=== PATIENT | female | born 1980 | race Caucasian/White ===

== ENCOUNTER 2017-10-05 11:50 | Emergency (ER) | payer OTHER, MEDICAID ==
[~2017-10-05] VITALS: Ht 165.1 cm; Wt 68.0 kg
[~2017-10-05 11:50] MED LIST: ACETAMINOPHEN-120 ML PO; ACYCLOVIR 800800 M1; ADDERALL 20 MG20 MG PO; AMBIEN 5 MG TABL5 M1 PO; AMOXICILLIN 50500 MG PO; ANACIN 400-321 EACH PO; AUGMENTIN 875875 MG PO; BUSPAR; BUSPIRONE HCL10 MG PO; CELEXA 10 MG TA10 M1; CHLOR-TABLET4 MG PO; CIPROFLOXACIN500 M1 PO; CLARITIN10 MG PO; CLEOCIN HCL150 MG PO; CYMBALTA60 MG PO; DOXYCYCLINE 10100 M1 PO; FIORINAL 50-321 EACH; FLEXERIL PO; HYDROCODONE-AP1 EAC6 PO; IBUPROFEN 800800 M1; IBUPROFEN 800800 M1 PO; LAMICTAL; LIDOCAINE VISC100 M1 SWISH&SPIT; LIPITOR10 MG PO; LUNESTA2 MG PO; NORCO 5-325 TA1 EAC1 PO; NORCO 5-325 TA1 EACH PO; OMEPRAZOLE40 MG; PAXIL10 MG PO; PEPCID20 MG PO; PERCOCET 5-3251 EACH PO; PHENERGAN 25 MG25 M1 PO; PREDNISONE 10 M10 MG PO; PROBIOTIC1 EAC1 PO; REQUIP0.5 MG; RITALIN; TESSALON PERLE100 MG PO; TRINATE TABLET1 TAB PO; ULTRAM 50MG TAB50 MG PO; VALTREX1000 MG PO; VENTOLIN17 GM INH; XANAX 0.5 MG0.5 MG PO; XANAX1 MG PO; ZOFRAN ODT4 MG PO; ZOFRAN4 MG PO; ZOLOFT20 MG/1 ML; ZPAK PO; ZYRTEC10 M5 PO
[2017-10-05 12:10] VITALS: BP 143/82
[2017-10-05] MEDS ORDERED: AMBIEN 5 MG TABL5 M1 PO (12:12)
[2017-10-05 12:35] LABS: URINE BILIRUBIN NEGATIVE (Negative); URINE BLOOD NEGATIVE (Negative); URINE CLARITY CLEAR; URINE COLOR YELLOW; URINE GLUCOSE-RANDOM NEGATIVE (Negative); URINE KETONES TRACE (Negative); URINE LEUKOCYTES-REFLEX TRACE (Negative); URINE NITRITE-REFLEX NEGATIVE (Negative); URINE PROTEIN NEGATIVE (Negative); URINE SPECIFIC GRAVITY 1.025 (1.005-1.030); URINE UROBILINOGEN 0.2 E.U./dl (0.2-1.0)
[2017-10-05 12:52] LABS: SQUAMOUS >10 Many /LPF (0-3); URINE RBC None Seen /HPF (0-2); URINE WBC-REFLEX 0-5 Rare /HPF (0-5)
[2017-10-05 12:53] LABS: BACTERIA-REFLEX 1-9 Few /HPF (None Seen); CASTS None Seen /LPF (None Seen); CRYSTALS None Seen /LPF (None Seen)
[2017-10-05] MEDS ORDERED: MEDROLDOSEPACK PO (12:58)
[2017-10-05] MEDS ORDERED: ZANAFLEX4 MG PO (12:58)
== END 2017-10-05 13:09 | disposition home or self-care (01) ==
LOC: M.ERS 11:50
PROVIDERS: Nurse Practitioner Family
DX: S39.012A Strain of muscle, fascia and tendon of lower back, initial encounter (principal); Z88.5 Allergy status to narcotic agent; Z88.1 Allergy status to other antibiotic agents; Z88.8 Allergy status to other drugs, medicaments and biological substances; X58.XXXA Exposure to other specified factors, initial encounter; Y93.89 Activity, other specified; Y92.89 Other specified places as the place of occurrence of the external cause; Y99.8 Other external cause status

== ENCOUNTER 2018-02-26 17:07 | Emergency (ER) | payer OTHER, MEDICAID ==
[~2018-02-26] VITALS: Ht 165.1 cm; Wt 66.7 kg
[~2018-02-26 17:07] MED LIST changes: +MEDROLDOSEPACK PO; +ZANAFLEX4 MG PO
[2018-02-26] MEDS ORDERED: BUSPIRONE HCL10 MG PO (17:24)
[2018-02-26] MEDS ORDERED: CYMBALTA60 MG PO (17:24)
[2018-02-26] MEDS ORDERED: PRENATAL PO (17:25)
[2018-02-26] MEDS ORDERED: ACYCLOVIR 400400 MG PO (17:25)
[2018-02-26 17:40] LABS: ABSOLUTE EOSINOPHILS 0.1 thou/uL (0.0-0.7); ABSOLUTE MONOCYTES 0.3 thou/uL (0.0-1.2); ABSOLUTE NEUTROPHILS 6.7 thou/uL (1.6-8.1); BASOPHILS 0.1 %; EOSINOPHILS 1.6 %; HEMATOCRIT 40.7 % (37.0-47.0); HEMOGLOBIN 13.9 gm/dL (12.0-15.0); LYMPHOCYTES 12.7 %; MCH 31.7 pg (26.0-34.0); MCHC 34.2 g/dL (28.0-37.0); MCV 92.8 fL (80.0-100.0); MONOCYTES 3.9 %; MPV 7.9 fl. (7.2-11.1); NUCLEATED RBCS 0 /100WBC; PLATELET COUNT* 246 thou/uL (150-400); POLYS 81.7 %; RBC 4.38 mil/uL (4.20-5.00); RDW-CV 11.6 % (10.5-14.5); WBC 8.2 thou/uL (4.0-11.0)
[2018-02-26 17:46] LABS: CALCIUM 9.1 mg/dL (8.5-10.1); CREATININE 0.8 mg/dL (0.6-1.3); POTASSIUM 3.8 mmol/L (3.5-5.1)
[2018-02-26 17:50] LABS: ALBUMIN 3.9 g/dL (3.4-5.0); TOTAL BILIRUBIN 0.3 mg/dL (<0.1-1.0); TOTAL PROTEIN 7.4 g/dL (6.4-8.2)
[2018-02-26 17:55] LABS: URINE BILIRUBIN NEGATIVE (Negative); URINE BLOOD NEGATIVE (Negative); URINE CLARITY CLEAR; URINE COLOR YELLOW; URINE GLUCOSE-RANDOM NEGATIVE (Negative); URINE KETONES TRACE (Negative); URINE LEUKOCYTES-REFLEX NEGATIVE (Negative); URINE NITRITE-REFLEX NEGATIVE (Negative); URINE PROTEIN NEGATIVE (Negative); URINE SPECIFIC GRAVITY 1.015 (1.005-1.030); URINE UROBILINOGEN 0.2 E.U./dl (0.2-1.0)
[2018-02-26] MEDS ORDERED: NORFLEX100 MG PO (19:01)
[2018-02-26] MEDS ORDERED: VISTARIL 25 MG25 M1 PO (19:06)
[2018-02-26] MEDS ORDERED: XANAX 0.25 MG0.25 MG PO (19:13)
[2018-02-26 19:17] VITALS: BP 105/74
== END 2018-02-26 19:18 | disposition home or self-care (01) ==
LOC: M.ERS 17:07
PROVIDERS: Nurse Practitioner
DX: R10.9 Unspecified abdominal pain (principal); F41.9 Anxiety disorder, unspecified; Z90.49 Acquired absence of other specified parts of digestive tract; Z88.1 Allergy status to other antibiotic agents; Z88.5 Allergy status to narcotic agent; Z91.040 Latex allergy status; Z88.8 Allergy status to other drugs, medicaments and biological substances

== ENCOUNTER 2018-03-02 11:05 | Emergency (ER) | payer OTHER, MEDICAID ==
[~2018-03-02] VITALS: Ht 165.1 cm; Wt 66.2 kg
[~2018-03-02 11:05] MED LIST changes: +ACYCLOVIR 400400 MG PO; +NORFLEX100 MG PO; +PRENATAL PO; +VISTARIL 25 MG25 M1 PO; +XANAX 0.25 MG0.25 MG PO
[2018-03-02 11:34] LABS: ABSOLUTE LYMPHOCYTES 1.3 thou/uL (0.8-5.3); ABSOLUTE MONOCYTES 0.3 thou/uL (0.0-1.2); ABSOLUTE NEUTROPHILS 3.9 thou/uL (1.6-8.1); BASOPHILS 0.3 %; EOSINOPHILS 0.8 %; HEMATOCRIT 39.7 % (37.0-47.0); HEMOGLOBIN 13.3 gm/dL (12.0-15.0); LYMPHOCYTES 22.9 %; MCHC 33.5 g/dL (28.0-37.0); MCV 92.5 fL (80.0-100.0); MONOCYTES 4.8 %; MPV 8.1 fl. (7.2-11.1); NUCLEATED RBCS 0 /100WBC; PLATELET COUNT* 212 thou/uL (150-400); POLYS 71.2 %; RBC 4.29 mil/uL (4.20-5.00); RDW-CV 11.5 % (10.5-14.5); WBC 5.5 thou/uL (4.0-11.0)
[2018-03-02 11:44] LABS: CALCIUM 8.6 mg/dL (8.5-10.1); CREATININE 0.9 mg/dL (0.6-1.3); POTASSIUM 3.9 mmol/L (3.5-5.1)
[2018-03-02 11:51] LABS: ALBUMIN 3.7 g/dL (3.4-5.0); SALICYLATE < 2.8 mg/dL (2.8-20.0); TOTAL BILIRUBIN 0.4 mg/dL (<0.1-1.0); TOTAL PROTEIN 7.2 g/dL (6.4-8.2)
[2018-03-02 11:54] LABS: ACETAMINOPHEN < 2 ug/mL (10-30); ALCOHOL < 10 mg/dL (<10)
[2018-03-02 11:57] LABS: URINE BILIRUBIN NEGATIVE (Negative); URINE BLOOD NEGATIVE (Negative); URINE CLARITY CLEAR; URINE COLOR YELLOW; URINE GLUCOSE-RANDOM NEGATIVE (Negative); URINE KETONES 3+ (Negative); URINE LEUKOCYTES-REFLEX NEGATIVE (Negative); URINE NITRITE-REFLEX NEGATIVE (Negative); URINE PROTEIN NEGATIVE (Negative); URINE SPECIFIC GRAVITY >= 1.030 (1.005-1.030); URINE UROBILINOGEN 0.2 E.U./dl (0.2-1.0)
[2018-03-02 11:59] LABS: URINE REDUCING SUBSTANCE NEGATIVE (Negative)
[2018-03-02 12:23] LABS: AMP/METHAMP Negative (Negative); BARBITURATES POSITIVE (Negative); BENZODIAZEPINES Negative (Negative); COCAINE Negative (Negative); METHADONE Negative (Negative); OPIATES Negative (Negative); PCP Negative (Negative); THC Negative (Negative)
[2018-03-02 13:23] VITALS: BP 118/73
== END 2018-03-02 13:24 | disposition home or self-care (01) ==
LOC: M.ERS 11:05
PROVIDERS: Nurse Practitioner Family
DX: R10.30 Lower abdominal pain, unspecified (principal); Z88.5 Allergy status to narcotic agent; Z88.6 Allergy status to analgesic agent; Z88.8 Allergy status to other drugs, medicaments and biological substances; Z91.040 Latex allergy status

== ENCOUNTER 2018-05-29 02:49 | Emergency (ER) | payer OTHER, MEDICAID ==
[~2018-05-29] VITALS: Ht 165.1 cm; Wt 65.8 kg
[2018-05-29] MEDS ORDERED: D3 (02:56)
[2018-05-29] MEDS ORDERED: B1 (02:56)
[2018-05-29 06:36] VITALS: BP 148/85
== END 2018-05-29 06:39 | disposition home or self-care (01) ==
LOC: M.ERS 02:49
DX: F41.0 Panic disorder [episodic paroxysmal anxiety] (principal); Z88.6 Allergy status to analgesic agent; Z91.040 Latex allergy status; Z88.8 Allergy status to other drugs, medicaments and biological substances; Z88.1 Allergy status to other antibiotic agents; Z90.49 Acquired absence of other specified parts of digestive tract; Z98.890 Other specified postprocedural states

== ENCOUNTER 2018-06-02 11:59 | Emergency (ER) | payer OTHER, MEDICAID ==
[~2018-06-02] VITALS: Ht 165.1 cm; Wt 65.8 kg
[~2018-06-02 11:59] MED LIST changes: +B1; +D3
[2018-06-02] MEDS ORDERED: VALERIAN ROOT1 GM PO (12:18)
[2018-06-02] MEDS ORDERED: PRENATAL (12:18)
[2018-06-02] MEDS ORDERED: MELATONIN1 MG PO (12:18)
[2018-06-02 14:44] VITALS: BP 124/90
== END 2018-06-02 14:44 | disposition home or self-care (01) ==
LOC: M.ERS 11:59
DX: M54.6 Pain in thoracic spine (principal); F41.9 Anxiety disorder, unspecified; G35 Multiple sclerosis; E03.9 Hypothyroidism, unspecified; Z88.6 Allergy status to analgesic agent; Z91.040 Latex allergy status; Z88.8 Allergy status to other drugs, medicaments and biological substances; Z90.49 Acquired absence of other specified parts of digestive tract

== ENCOUNTER 2018-06-03 10:19 | Emergency (ER) | payer OTHER, MEDICAID ==
[~2018-06-03] VITALS: Ht 165.1 cm; Wt 65.8 kg
[~2018-06-03 10:19] MED LIST changes: +MELATONIN1 MG PO; +PRENATAL; +VALERIAN ROOT1 GM PO
[2018-06-03 10:27] VITALS: BP 133/96
== END 2018-06-03 10:44 | disposition home or self-care (01) ==
LOC: M.ERS 10:19
DX: F41.9 Anxiety disorder, unspecified (principal); Z76.0 Encounter for issue of repeat prescription; E03.9 Hypothyroidism, unspecified; Z88.6 Allergy status to analgesic agent; Z88.8 Allergy status to other drugs, medicaments and biological substances; Z91.040 Latex allergy status; Z90.49 Acquired absence of other specified parts of digestive tract

== ENCOUNTER 2019-08-06 17:39 | Emergency (ER) | payer OTHER, MEDICAID ==
[~2019-08-06] VITALS: Ht 165.1 cm; Wt 78.0 kg
[2019-08-06] MEDS ORDERED: PAXIL20 MG PO (17:47)
[2019-08-06 18:07] LABS: ABSOLUTE EOSINOPHILS 0.2 thou/uL (0.0-0.7); ABSOLUTE LYMPHOCYTES 2.2 thou/uL (0.8-5.3); ABSOLUTE MONOCYTES 0.4 thou/uL (0.0-1.2); ABSOLUTE NEUTROPHILS 5.2 thou/uL (1.6-8.1); BASOPHILS 0.5 %; EOSINOPHILS 2.9 %; HEMATOCRIT 38.8 % (37.0-47.0); HEMOGLOBIN 13.4 gm/dL (12.0-15.0); LYMPHOCYTES 26.9 %; MCH 31.8 pg (26.0-34.0); MCHC 34.5 g/dL (28.0-37.0); MCV 92.1 fL (80.0-100.0); MONOCYTES 4.7 %; MPV 8.4 fl. (7.2-11.1); NUCLEATED RBCS 0 /100WBC; PLATELET COUNT* 207 thou/uL (150-400); RBC 4.21 mil/uL (4.20-5.00); RDW-CV 12.2 % (10.5-14.5)
[2019-08-06 18:16] LABS: URINE BILIRUBIN NEGATIVE (Negative); URINE BLOOD NEGATIVE (Negative); URINE CLARITY CLEAR; URINE COLOR YELLOW; URINE GLUCOSE-RANDOM NEGATIVE (Negative); URINE KETONES NEGATIVE (Negative); URINE LEUKOCYTES-REFLEX NEGATIVE (Negative); URINE NITRITE-REFLEX NEGATIVE (Negative); URINE PROTEIN NEGATIVE (Negative); URINE UROBILINOGEN 0.2 E.U./dl (0.2-1.0)
[2019-08-06 18:17] LABS: CALCIUM 8.6 mg/dL (8.5-10.1); CREATININE 0.8 mg/dL (0.6-1.3); POTASSIUM 3.9 mmol/L (3.5-5.1)
[2019-08-06 18:21] LABS: ALBUMIN 3.7 g/dL (3.4-5.0); TOTAL BILIRUBIN 0.1 mg/dL (<0.1-1.0); TOTAL PROTEIN 6.9 g/dL (6.4-8.2)
[2019-08-06 18:25] LABS: AMP/METHAMP Negative (Negative); BARBITURATES Negative (Negative); BENZODIAZEPINES Negative (Negative); COCAINE Negative (Negative); METHADONE Negative (Negative); OPIATES Negative (Negative); PCP Negative (Negative); THC Negative (Negative)
[2019-08-06 18:28] LABS: ACETAMINOPHEN 29 ug/mL (10-30); ALCOHOL 85 mg/dL (<10); SALICYLATE < 2.8 mg/dL (2.8-20.0)
[2019-08-06 21:21] VITALS: BP 120/62
== END 2019-08-06 21:21 | disposition home or self-care (01) ==
LOC: M.ERS 17:39
PROVIDERS: Emergency Medicine Emergency Medical Services
DX: F23 Brief psychotic disorder (principal); F20.9 Schizophrenia, unspecified; Z90.49 Acquired absence of other specified parts of digestive tract; Z88.6 Allergy status to analgesic agent; Z88.8 Allergy status to other drugs, medicaments and biological substances; Z88.5 Allergy status to narcotic agent; Z91.040 Latex allergy status; Z79.899 Other long term (current) drug therapy

== ENCOUNTER 2021-07-05 09:34 | Emergency (ER) | payer OTHER, MEDICAID ==
[~2021-07-05] VITALS: Ht 165.1 cm; Wt 61.2 kg
[~2021-07-05 09:34] MED LIST changes: +PAXIL20 MG PO
[2021-07-05] MEDS ORDERED: AMITIZA8 MCG PO (10:12)
[2021-07-05] MEDS ORDERED: MELOXICAM5 MG PO (10:12)
[2021-07-05 11:49] VITALS: BP 139/84
== END 2021-07-05 11:50 | disposition home or self-care (01) ==
LOC: M.ERS 09:34
DX: J06.9 Acute upper respiratory infection, unspecified (principal); F41.9 Anxiety disorder, unspecified; E03.9 Hypothyroidism, unspecified; Z90.49 Acquired absence of other specified parts of digestive tract; Z98.890 Other specified postprocedural states; Z79.899 Other long term (current) drug therapy; Z79.891 Long term (current) use of opiate analgesic; Z79.1 Long term (current) use of non-steroidal anti-inflammatories (NSAID); Z88.6 Allergy status to analgesic agent; Z88.1 Allergy status to other antibiotic agents; Z91.040 Latex allergy status; Z88.5 Allergy status to narcotic agent; Z91.048 Other nonmedicinal substance allergy status